=== PATIENT | female | born 1985 | race Native Hawaiian/Other Pacific Islander ===

== ENCOUNTER 2017-05-08 08:39 | Emergency (ER) | payer OTHER ==
[~2017-05-08] VITALS: Ht 160 cm; Wt 59.0 kg
== END 2017-05-08 09:25 | disposition home or self-care (01) ==
LOC: ED 08:39
DX: T78.40XA Allergy, unspecified, initial encounter (principal); X58.XXXA Exposure to other specified factors, initial encounter
CPT/HCPCS: 99282

== ENCOUNTER 2023-02-27 05:13 | Emergency (ER) | payer OTHER ==
[~2023-02-27] VITALS: Ht 160 cm; Wt 54.4 kg
[2023-02-27 05:51] LABS: PLATELET COUNT 223 K/uL (152-353)
[2023-02-27 05:59] LABS: POTASSIUM 3.6 mmol/L (3.6-5.2)
[2023-02-27 08:17] VITALS: BP 117/82; TEMP 97.9
== END 2023-02-27 08:17 | disposition home or self-care (01) ==
LOC: ED 05:13
PROVIDERS: Family Medicine
DX: N83.209 Unspecified ovarian cyst, unspecified side (principal); R10.9 Unspecified abdominal pain; F17.210 Nicotine dependence, cigarettes, uncomplicated
CPT/HCPCS: 80053; 81002; 81025; 83690; 85027; 96361; 96374; 96375; 99284; J1170; J2270; J2405; Q9963